=== PATIENT | male | born 1950 | race Hispanic/Latino ===

== ENCOUNTER → 2018-04-03 | Day surgery (SDC) | payer MEDICARE ==
[2018-04-03 17:23] VITALS: BP 135/76; TEMP 97.5
== END ==
LOC: BUR/OP 14:00
DX: E29.1 Testicular hypofunction (principal)
CPT/HCPCS: 96372

== ENCOUNTER → 2018-04-18 | Day surgery (SDC) | payer MEDICARE ==
[2018-04-18 13:48] VITALS: BP 125/73; TEMP 98.2
== END ==
LOC: BUR/OP 13:04
PROVIDERS: ATTEND Family Medicine
DX: E29.1 Testicular hypofunction (principal)
CPT/HCPCS: 96372

== ENCOUNTER → 2018-05-01 | Day surgery (SDC) | payer MEDICARE ==
[2018-05-01 19:50] VITALS: BP 136/72; TEMP 98.1
== END ==
LOC: BUR/OP 09:15
PROVIDERS: ATTEND Family Medicine
DX: E29.1 Testicular hypofunction (principal)
CPT/HCPCS: 96372

== ENCOUNTER → 2018-05-29 | Day surgery (SDC) | payer MEDICARE ==
[2018-05-29 17:07] VITALS: BP 129/75; TEMP 98.1
== END ==
LOC: BUR/OP 15:58
PROVIDERS: ATTEND Family Medicine
DX: E29.1 Testicular hypofunction (principal)
CPT/HCPCS: 96372; 99201; G0463

== ENCOUNTER 2018-07-08 13:52 | Day surgery (SDC) | payer MEDICARE ==
[2018-07-08 15:56] VITALS: BP 133/74; TEMP 98.6
[2018-07-08 16:00] VITALS: BMI 28.1
== END 2018-07-08 14:25 | disposition home or self-care (01) ==
LOC: BUR/OP 13:52
PROVIDERS: ATTEND Family Medicine
DX: E29.1 Testicular hypofunction (principal)
CPT/HCPCS: 96372

== ENCOUNTER → 2018-08-05 | Day surgery (SDC) | payer MEDICARE ==
[2018-08-05 11:26] VITALS: BP 136/70; TEMP 98
== END ==
LOC: BUR/OP 09:51
PROVIDERS: ATTEND Family Medicine
DX: E29.1 Testicular hypofunction (principal)
CPT/HCPCS: 96372

== ENCOUNTER 2018-08-20 14:05 | Day surgery (SDC) | payer MEDICARE ==
[2018-08-20 15:09] VITALS: BP 145/74; TEMP 98.6
== END 2018-08-20 15:10 | disposition home or self-care (01) ==
LOC: BUR/OP 14:05
PROVIDERS: ATTEND Family Medicine
DX: E29.1 Testicular hypofunction (principal)
CPT/HCPCS: 96372

== ENCOUNTER → 2018-09-02 | Day surgery (SDC) | payer MEDICARE ==
[2018-09-02 14:08] VITALS: BP 136/82; TEMP 98
== END ==
LOC: BUR/OP 13:21
PROVIDERS: ATTEND Family Medicine
DX: E29.1 Testicular hypofunction (principal)
CPT/HCPCS: 96374

== ENCOUNTER → 2018-09-17 | Day surgery (SDC) | payer MEDICARE ==
[2018-09-17 10:18] VITALS: BP 131/72; TEMP 98.3
[2018-09-17 16:59] LABS: Hemoglobin 16.9 g/dL (14.0-18.0); Mean Corpuscular HGB CONC 32.1 g/dL (32.0-36.0); Mean Corpuscular Hemoglobin 27.5 pg (27.0-31.0); Mean Corpuscular Volume 85.5 fL (78.0-98.0); Mean Platelet Volume 7.1 fL (7.4-10.4); Platelet Count 319 thou/uL (130-400); RBC Distribution Width 13.2 % (11.5-14.5); Red Blood Cell (RBC) Count 6.14 mill/uL (4.70-6.10); White Blood Cell (WBC) Count 7.3 thou/uL (4.8-10.8)
[2018-09-17 17:04] LABS: ALT (SGPT) 20 U/L (8-55); AST (SGOT) 18 U/L (5-34); Albumin 4.4 g/dL (3.4-4.8); Alkaline Phosphatase 44 U/L (40-150); Anion Gap 17 mmol/L (10-20); BUN (Urea Nitrogen) 23 mg/dL (8.4-25.7); Bilirubin, Total 0.6 mg/dL (0.2-1.2); Calc. Creatinine Clearance 0 mL/min (70-130); Calcium 9.7 mg/dL (7.8-10.44); Carbon Dioxide 23 mmol/L (23-31); Cardiac Risk 4.8 (Less than 4.5); Chloride 103 mmol/L (98-107); Cholesterol 167 mg/dl (< 200 Desired); Estimated GFR-MDRD 59; Glucose 121 mg/dL (80-115); HDL Cholesterol 35 mg/dL (>60 Neg Risk); LDL Cholesterol, Calculated 108 mg/dL; Potassium 4.6 mmol/L (3.5-5.1); Protein, Total 7.4 g/dL (5.8-8.1); Sodium 138 mmol/L (136-145); Triglycerides 119 mg/dL (Less than 150)
[2018-09-17 17:22] LABS: Hemoglobin A1c 7.1 % (4.0-6.0)
== END ==
LOC: BUR/OP 09:20
PROVIDERS: ATTEND Family Medicine
DX: E29.1 Testicular hypofunction (principal); E21.3 Hyperparathyroidism, unspecified; E03.4 Atrophy of thyroid (acquired); E11.9 Type 2 diabetes mellitus without complications
CPT/HCPCS: 36415; 80053; 80061; 83036; 84403; 84443; 85027; 96372

== ENCOUNTER 2018-10-02 16:16 | Outpatient (CLI) | payer MEDICARE ==
--- NOTE | 2018-10-02 17:47 | RAD ---
CHEST TWO VIEWS: 10/02/18 No films were available for comparison. The heart is normal in size. Some clips are seen along the right paratracheal region from a prior juan a gical procedure. There is no vascular congestion, edema, or pleural effusion. Some streaking is seen in the lingular region. The appearance is more suggestive of scarring than a recurrent infiltrate. T he lungs are otherwise clear, though slightly hyperexpanded. Mild degenerative changes are seen in th e spine. IMPRESSION: No acute findings. Lingular streaking seems more likely chronic than acute. POS: HOME
--- NOTE | 2018-10-02 17:49 | RAD ---
LEFT SHOULDER THREE VIEWS: 10/02/18 There is a small amount of calcification in the tendons around the humeral head suggesting calcific t endonitis. No fracture, dislocation or AC joint widening was seen. The visible adjacent ribs appeared intact. The scapula appeared normal. IMPRESSION: Calcific tendonitis. POS: HOME
== END 2018-10-02 16:17 | disposition home or self-care (01) ==
LOC: BURRAD 16:16
PROVIDERS: ATTEND Family Medicine
DX: M25.512 Pain in left shoulder (principal); R05 Cough; M75.32 Calcific tendinitis of left shoulder
CPT/HCPCS: 71046

== ENCOUNTER → 2018-10-02 | Day surgery (SDC) | payer MEDICARE ==
[2018-10-02 14:10] VITALS: BP 129/72; TEMP 98
== END ==
LOC: BUR/OP 13:35
PROVIDERS: ATTEND Family Medicine
DX: E29.1 Testicular hypofunction (principal)
CPT/HCPCS: 96372

== ENCOUNTER → 2018-10-28 | Day surgery (SDC) | payer MEDICARE ==
[2018-10-28 14:52] VITALS: BP 147/69; TEMP 98.5
== END ==
LOC: BUR/OP 14:24
PROVIDERS: ATTEND Family Medicine
DX: E29.1 Testicular hypofunction (principal)
CPT/HCPCS: 96372

== ENCOUNTER → 2018-11-13 | Day surgery (SDC) | payer MEDICARE ==
[2018-11-13 16:16] VITALS: BP 134/74; TEMP 97.7
== END ==
LOC: BUR/OP 13:11
PROVIDERS: ATTEND Family Medicine
DX: E29.1 Testicular hypofunction (principal)
CPT/HCPCS: 96372

== ENCOUNTER → 2018-11-27 | Day surgery (SDC) | payer MEDICARE ==
[2018-11-27 16:56] VITALS: BP 131/60; TEMP 98.3
== END ==
LOC: BUR/OP 12:09
PROVIDERS: ATTEND Family Medicine
DX: E29.1 Testicular hypofunction (principal)
CPT/HCPCS: 96372

== ENCOUNTER → 2018-12-12 | Day surgery (SDC) | payer MEDICARE ==
[2018-12-12 15:23] VITALS: BP 131/68; TEMP 98.5
== END ==
LOC: BUR/OP 12:12
PROVIDERS: ATTEND Family Medicine
DX: E29.1 Testicular hypofunction (principal)
CPT/HCPCS: 96372

== ENCOUNTER → 2018-12-23 | Day surgery (SDC) | payer MEDICARE ==
[2018-12-23 16:34] VITALS: BP 143/74; TEMP 98
== END ==
LOC: BUR/OP 16:05
PROVIDERS: ATTEND Family Medicine
DX: E29.1 Testicular hypofunction (principal)
CPT/HCPCS: 96372

== ENCOUNTER 2018-12-31 19:34 | Emergency (ER) | payer MEDICARE ==
[2018-12-31] MEDS ORDERED: Ondansetron ODT 4 MG TAB ONE (20:06)
== END 2018-12-31 21:16 | disposition home or self-care (01) ==
LOC: BURERS 19:34
DX: A08.4 Viral intestinal infection, unspecified (principal); R11.2 Nausea with vomiting, unspecified; E11.9 Type 2 diabetes mellitus without complications; E03.9 Hypothyroidism, unspecified; E78.5 Hyperlipidemia, unspecified; E78.00 Pure hypercholesterolemia, unspecified; Z79.899 Other long term (current) drug therapy; Z79.84 Long term (current) use of oral hypoglycemic drugs
CPT/HCPCS: 36416; 96360; Q0162

== ENCOUNTER → 2019-01-07 | Day surgery (SDC) | payer MEDICARE ==
[2019-01-07 15:28] VITALS: BP 134/63; TEMP 98.2
== END ==
LOC: BUR/OP 15:09
PROVIDERS: ATTEND Family Medicine
DX: E29.1 Testicular hypofunction (principal)
CPT/HCPCS: 96372

== ENCOUNTER → 2019-01-20 | Day surgery (SDC) | payer MEDICARE ==
[2019-01-20 16:23] VITALS: BP 157/80; TEMP 97.9
== END ==
LOC: BUR/OP 15:52
PROVIDERS: ATTEND Family Medicine
DX: E29.1 Testicular hypofunction (principal)
CPT/HCPCS: 96372

== ENCOUNTER → 2019-02-05 | Day surgery (SDC) | payer MEDICARE ==
[2019-02-05 16:45] VITALS: BP 127/67; TEMP 98.4
== END ==
LOC: BUR/OP 16:17
PROVIDERS: ATTEND Family Medicine
DX: E29.1 Testicular hypofunction (principal)
CPT/HCPCS: 96372

== ENCOUNTER → 2019-02-17 | Day surgery (SDC) | payer MEDICARE ==
[2019-02-17 13:57] VITALS: BP 145/80; TEMP 98.5
== END ==
LOC: BUR/OP 13:10
PROVIDERS: ATTEND Family Medicine
DX: E29.1 Testicular hypofunction (principal)
CPT/HCPCS: 96372

== ENCOUNTER → 2019-03-03 | Day surgery (SDC) | payer MEDICARE ==
[2019-03-03 16:41] VITALS: BP 145/71; TEMP 98.2
== END ==
LOC: BUR/OP 16:01
PROVIDERS: ATTEND Family Medicine
DX: E29.1 Testicular hypofunction (principal)
CPT/HCPCS: 96372

== ENCOUNTER → 2019-03-20 | Day surgery (SDC) | payer MEDICARE ==
[2019-03-20 17:49] VITALS: BP 133/71; TEMP 98.3
== END ==
LOC: BUR/OP 17:15
PROVIDERS: ATTEND Family Medicine
DX: E29.1 Testicular hypofunction (principal)
CPT/HCPCS: 96372

== ENCOUNTER → 2019-04-14 | Day surgery (SDC) | payer MEDICARE ==
[2019-04-14 16:43] VITALS: BP 146/79; TEMP 98.1
== END ==
LOC: BUR/OP 15:58
PROVIDERS: ATTEND Family Medicine
DX: E29.1 Testicular hypofunction (principal)
CPT/HCPCS: 96372

== ENCOUNTER → 2019-04-28 | Day surgery (SDC) | payer MEDICARE ==
[2019-04-28 19:36] VITALS: BP 155/74; TEMP 98.3
== END ==
LOC: BUR/OP 14:19
PROVIDERS: ATTEND Family Medicine
DX: E29.1 Testicular hypofunction (principal)
CPT/HCPCS: 96372

== ENCOUNTER → 2019-05-14 | Day surgery (SDC) | payer MEDICARE ==
[2019-05-14 14:41] VITALS: BP 160/70; TEMP 98.3
== END ==
LOC: BUR/OP 13:30
PROVIDERS: ATTEND Family Medicine
DX: E29.1 Testicular hypofunction (principal)
CPT/HCPCS: 96372

== ENCOUNTER → 2019-06-11 | Day surgery (SDC) | payer MEDICARE ==
[2019-06-11 16:50] VITALS: BP 138/67; TEMP 97.7
== END ==
LOC: BUR/OP 15:02
PROVIDERS: ATTEND Family Medicine
DX: E29.1 Testicular hypofunction (principal)
CPT/HCPCS: 96372

== ENCOUNTER → 2019-06-25 | Day surgery (SDC) | payer MEDICARE ==
[2019-06-25 17:24] VITALS: BP 139/72
== END | disposition home or self-care (01) ==
LOC: BUR/OP 15:45
PROVIDERS: ATTEND Family Medicine
DX: E29.1 Testicular hypofunction (principal)
CPT/HCPCS: 96372

== ENCOUNTER → 2019-07-09 | Day surgery (SDC) | payer MEDICARE ==
[2019-07-09 20:23] VITALS: BP 134/67; TEMP 97.6
== END ==
LOC: BUR/OP 14:51
PROVIDERS: ATTEND Family Medicine
DX: E29.1 Testicular hypofunction (principal)
CPT/HCPCS: 96372

== ENCOUNTER → 2019-07-23 | Day surgery (SDC) | payer MEDICARE ==
[2019-07-23 14:25] VITALS: BP 133/69; TEMP 98.3
== END ==
LOC: BUR/OP 13:59
PROVIDERS: ATTEND Family Medicine
DX: E29.1 Testicular hypofunction (principal)
CPT/HCPCS: 96372

== ENCOUNTER → 2019-08-06 | Day surgery (SDC) | payer MEDICARE ==
[2019-08-06 19:00] VITALS: BP 157/72; TEMP 98.2
== END ==
LOC: BUR/OP 18:14
PROVIDERS: ATTEND Family Medicine
DX: E29.1 Testicular hypofunction (principal)
CPT/HCPCS: 96372

== ENCOUNTER → 2019-08-19 | Day surgery (SDC) | payer MEDICARE ==
[2019-08-19 15:06] VITALS: BP 144/82; TEMP 97.7
== END ==
LOC: BUR/OP 14:35
PROVIDERS: ATTEND Family Medicine
DX: E29.1 Testicular hypofunction (principal)
CPT/HCPCS: 96372

== ENCOUNTER → 2019-09-02 | Day surgery (SDC) | payer MEDICARE ==
[2019-09-02 13:44] VITALS: BP 137/72
== END ==
LOC: BUR/OP 13:08
PROVIDERS: ATTEND Family Medicine
DX: E29.1 Testicular hypofunction (principal)
CPT/HCPCS: 96372

== ENCOUNTER → 2019-09-17 | Day surgery (SDC) | payer MEDICARE, OTHER ==
[2019-09-17 13:23] VITALS: BP 144/66; TEMP 98.3
== END ==
LOC: BUR/OP 13:00
PROVIDERS: ATTEND Family Medicine
DX: E29.1 Testicular hypofunction (principal)
CPT/HCPCS: 96372

== ENCOUNTER → 2019-10-13 | Day surgery (SDC) | payer MEDICARE, OTHER ==
[2019-10-13 13:36] VITALS: BP 138/64; TEMP 98.4
== END ==
LOC: BUR/OP 13:03
PROVIDERS: ATTEND Family Medicine
DX: E29.1 Testicular hypofunction (principal)
CPT/HCPCS: 96372

== ENCOUNTER → 2019-11-11 | Day surgery (SDC) | payer MEDICARE, OTHER ==
[2019-11-11 13:37] VITALS: BP 138/80; TEMP 98.2
== END ==
LOC: BUR/OP 13:08
PROVIDERS: ATTEND Family Medicine
DX: E29.1 Testicular hypofunction (principal)
CPT/HCPCS: 96372

== ENCOUNTER 2019-11-13 11:59 | Outpatient (CLI) | payer MEDICARE, OTHER ==
--- NOTE | 2019-11-13 12:36 | RAD ---
XR Knee Rt 4 View STANDARD HISTORY: Right knee pain FINDINGS: No fracture or dislocation is identified. No bony destruction or significant osteophytosis is seen.
--- NOTE | 2019-11-13 12:37 | RAD ---
Exam:4 views left knee HISTORY: Pain. COMPARISON: None FINDINGS: No joint effusion. No significant loss of joint space height. No fractures. IMPRESSION: No significant degenerative change. No fractures or malalignment.
== END 2019-11-13 12:00 | disposition home or self-care (01) ==
LOC: BURRAD 11:59
PROVIDERS: ATTEND Family Medicine
DX: M25.561 Pain in right knee (principal); M25.562 Pain in left knee

== ENCOUNTER → 2019-11-24 | Day surgery (SDC) | payer MEDICARE, OTHER ==
[2019-11-24 17:56] VITALS: BP 138/71; TEMP 98.2
== END ==
LOC: BUR/OP 17:12
PROVIDERS: ATTEND Family Medicine
DX: E29.1 Testicular hypofunction (principal)
CPT/HCPCS: 96372

== ENCOUNTER → 2019-12-09 | Day surgery (SDC) | payer MEDICARE, OTHER ==
[2019-12-09 15:34] VITALS: BP 128/71; TEMP 98.1
== END ==
LOC: BUR/OP 15:05
PROVIDERS: ATTEND Family Medicine
DX: E29.1 Testicular hypofunction (principal)
CPT/HCPCS: 96372

== ENCOUNTER → 2019-12-25 | Day surgery (SDC) | payer MEDICARE, OTHER ==
[2019-12-25 17:37] VITALS: BP 148/86; TEMP 98.1
== END ==
LOC: BUR/OP 16:31
PROVIDERS: ATTEND Family Medicine
DX: E29.1 Testicular hypofunction (principal)
CPT/HCPCS: 96372

== ENCOUNTER 2020-01-05 14:58 | Day surgery (SDC) | payer MEDICARE, OTHER | END 2020-01-05 15:22 | disposition home or self-care (01) | LOC: BUR/OP 14:58 | PROVIDERS: ATTEND Family Medicine | DX: E29.1 Testicular hypofunction (principal) | CPT/HCPCS: 96372 ==

== ENCOUNTER → 2020-01-21 | Day surgery (SDC) | payer MEDICARE, OTHER ==
[2020-01-21 18:12] VITALS: BP 140/75; TEMP 98.4
== END ==
LOC: BUR/OP 16:48
PROVIDERS: ATTEND Family Medicine
DX: E29.1 Testicular hypofunction (principal)
CPT/HCPCS: 96372

== ENCOUNTER → 2020-02-04 | Day surgery (SDC) | payer MEDICARE, OTHER ==
[2020-02-04 15:05] VITALS: BP 133/69; TEMP 98.1
== END ==
LOC: BUR/OP 14:11
PROVIDERS: ATTEND Family Medicine
DX: E29.1 Testicular hypofunction (principal)
CPT/HCPCS: 96372